=== PATIENT | female | born 1950 | race Caucasian/White ===

== ENCOUNTER 2016-10-03 17:32 | Emergency (ER) | payer MEDICARE, OTHER ==
[~2016-10-03 17:32] MED LIST: ASPIR-TRIN325 MG PO; DIOVAN80 MG PO; HYDROCHLOROTHIA25 MG PO; KLONOPIN TAB 00.5 MG PO; PROTONIX40 MG PO; REMERON30 MG PO; TENORMIN 25 MG25 MG PO; ZYPREXA5 MG PO; ZYRTEC10 M3 PO
[2016-10-03 18:11] LABS: HEMOGLOBIN 10.3 gm/dl (12.3-15.3); RED BLOOD COUNT 3.28 M/UL (4.00-5.10); WHITE BLOOD COUNT 8.7 K/UL (4.5-11.0)
[2016-10-03 18:46] LABS: BUN/CREATININE RATIO 16 (0-10)
== END 2016-10-03 21:16 | disposition short-term general hospital (02) ==
LOC: ER1 17:32
PROVIDERS: Emergency Medicine
DX: E87.1 Hypo-osmolality and hyponatremia (principal); D64.9 Anemia, unspecified; R41.82 Altered mental status, unspecified; Z91.81 History of falling; X58.XXXA Exposure to other specified factors, initial encounter; I10 Essential (primary) hypertension; Z79.82 Long term (current) use of aspirin; Z79.899 Other long term (current) drug therapy
CPT/HCPCS: 31500; 36415; 36600; 51702; 70450; 71010; 72125; 80053; 81001; 82436; 82550; 82553; 82570; 82803; 83605; 83735; 83874; 83935; 84133; 84300; 84484; 85025; 87040; 93005; 94002; 96374; 96375; 99291; A4628; J1953; J2060; J2405; J7131